=== PATIENT | female | born 1950 | race Asian ===

== ENCOUNTER 2017-11-03 07:26 | Day surgery (SDC) | payer OTHER ==
[~2017-11-03 07:26] MED LIST: LIDOCAINE 2% (SDV) 5 ML INJ; METOCLOPRAMIDE 10 MG INJ
[2017-11-03] MEDS ORDERED: FENTAnyl 50 MCG/ML VIAL (08:33)
[2017-11-03] MEDS ORDERED: MIDAZOLAM 1 MG/ML 2 ML INJ (08:33)
[2017-11-03] MEDS ORDERED: PROPOFOL 20 ML (08:33)
[2017-11-03] MEDS ORDERED: ONDANSETRON 4 MG INJ (08:34)
[2017-11-03] MEDS ORDERED: HYDROmorphONE (0.2 MG/ML) 10ML SYG IV ×2 (10:30)
[2017-11-03] MEDS ORDERED: FENTAnyl 50 MCG/ML VIAL IV ×2 (10:30)
[2017-11-03] MEDS ORDERED: KETOROLAC 30 MG INJ IV (10:38)
== END 2017-11-03 11:55 | disposition home or self-care (01) ==
LOC: SDS 07:26
DX: N92.0 Excessive and frequent menstruation with regular cycle (principal); N84.0 Polyp of corpus uteri
CPT/HCPCS: 58558; 88305